=== PATIENT | male | born 1960 ===

== ENCOUNTER 2017-08-01 23:17 | Observation (INO) | payer BC ==
[2017-08-01] MEDS ORDERED: Iohexol 240 (50 ml) PO STA (23:29)
[2017-08-01] MEDS ORDERED: Sodium Chloride 0.9% 1,000 ML IV STA (23:30)
--- NOTE | 2017-08-01 23:41 | ED PDOC ---
HPI: Abdomen Time Seen by Provider: 08/01/17 23:25 Chief Complaint (Nursing): Abdominal Pain Chief Complaint (Provider): Abdominal pain History Per: Patient History/Exam Limitations: no limitations Onset/Duration Of Symptoms: Days (1) Outside of [place] travel?: No Current Symptoms Are (Timing): Still Present Location Of Pain/Discomfort: Diffuse Quality Of Discomfort: "Pain" Associated Symptoms: Nausea, Vomiting. denies: Fever, Chills Additional History Per: Patient Additional Complaint(s): The patient is a 57yo male, pmhx of colon cancer with colectomy and removal of lesions on his liver, both occurring earlier this year, presents to the ED for evaluation of diffuse abdominal pain, described as sharp, present for the past day. He reports associated nausea and vomiting 1x and states his last bowel movement was earlier today. He denies any other medical complaints. Past Medical History Reviewed: Historical Data, Nursing Documentation, Vital Signs Vital Signs: Last Vital Signs Temp 98.4 F 08/03/17 07:35 Pulse 52 L 08/03/17 07:35 Resp 20 08/03/17 07:35 BP 156/88 H 08/03/17 07:35 Pulse Ox 98 08/03/17 07:35 - Medical History PMH: HTN, Seizures Denies: Chronic Kidney Disease - Surgical History Other surgeries: colectomy, lesion removal from liver - Family History Family History: States: Unknown Family Hx - Immunization History Hx Tetanus Toxoid Vaccination: No Hx Influenza Vaccination: No Hx Pneumococcal Vaccination: No - Home Medications Home Medications: Ambulatory Orders Medication Instructions Recorded Isosorbide 30 mg PO DAILY 02/16/15 Keppra 1,000 mg PO BID 02/16/15 Lamictal Xl 300 mg PO DAILY 02/16/15 Simvastatin 20 mg PO HS 02/16/15 - Allergies Allergies/Adverse Reactions: Allergies Allergy/AdvReac Type Severity Reaction Status Date / Time No Known Allergies Allergy Verified 08/01/17 23:18 Review of Systems ROS Statement: Except As Marked, All Systems Reviewed And Found Negative Constitutional: Negative for: Fever, Chills Gastrointestinal: Positive for: Nausea, Vomiting (x1), Abdominal Pain (diffuse) Physical Exam - Reviewed Nursing Documentation Reviewed: Yes Vital Signs Reviewed: Yes - Physical Exam Appears: Positive for: Non-toxic, Uncomfortable Head Exam: Positive for: ATRAUMATIC, NORMAL INSPECTION, NORMOCEPHALIC Skin: Positive for: Normal Color Eye Exam: Positive for: Normal appearance Neck: Positive for: Normal, Supple Cardiovascular/Chest: Positive for: Regular Rate, Rhythm Respiratory: Positive for: Normal Breath Sounds. Negative for: Respiratory Distress Gastrointestinal/Abdominal: Positive for: Soft, Tenderness (diffuse). Negative for: Guarding, Rebound Back: Positive for: Normal Inspection Extremity: Positive for: Normal ROM. Negative for: Deformity, Swelling Neurologic/Psych: Positive for: Alert, Oriented. Negative for: Motor/Sensory Deficits - Laboratory Results Result Diagrams: 08/03/17 08:01 08/01/17 23:47 - ECG Interpretation Of ECG: NSR @ 70, no ST-T changes. O2 Sat by Pulse Oximetry: 100 (RA) Pulse Ox Interpretation: Normal Medical Decision Making Medical Decision Making: Time: 2329 Impression: Abdominal pain Plan: * CT AP w. PO Contrast * Labs * IV NS 1L @ 1000 ml/hr * Morphine 4mg IV * Zofran 4mg IV * Urinalysis * Urine culture * ED Observation Scribe Attestation: Documented by Mallory Cummings, acting as a scribe for Idalia Jacobs MD. Provider Scribe Attestation: All medical record entries made by the Scribe were at my direction and personally dictated by me. I have reviewed the chart and agree that the record accurately reflects my personal performance of the history, physical exam, medical decision making, and the department course for this patient. I have also personally directed, reviewed, and agree with the discharge instructions and disposition. ED OBSERVATION Date of observation admission: 08/01/17 Time of observation admission: 23:30 - Observation admission statement Patient is being placed in observation because:: Pt w/ diffuse abdominal pain - Goals of Observation Goals of observation are:: Pt awaiting labs, imaging. - Progress Note Progress Note: 08/02/17 00:00 Pt to be signed out to Dr. Lipscomb pending labs, CT. Disposition - Clinical Impression Clinical Impression: Abdominal pain - Patient ED Disposition Is Patient to be Admitted: Transfer of Care - Disposition Disposition: Transfer of Care Disposition Time: 00:00 Condition: STABLE Patient Signed Over To: Sosa Lipscomb Handoff Comments: pending labs and imaging
[2017-08-01 23:53] LABS: BASO # 0.1 K/uL (0.0-0.2); BASO % 0.7 % (0.0-2.0); EOS # 0.1 K/uL (0.0-0.7); EOS % 0.7 % (0.0-4.0); LYMPH # 1.2 K/uL (1.0-4.3); LYMPH % 9.9 % (20.0-40.0); MEAN CELL VOLUME 85.3 fl (80.0-94.0); MEAN CORPUSCULAR HGB CONC 32.8 g/dL (33.0-37.0); MEAN PLATELET VOLUME 9.1 fl (7.2-11.7); MONO # 0.9 K/uL (0.0-0.8); NEUT % 81.7 % (50.0-75.0); PLATELET COUNT 194 K/uL (130-400); RED CELL DISTRIBUTION WIDTH 17.5 % (11.5-14.5); WHITE BLOOD COUNT 12.3 K/uL (4.8-10.8)
[2017-08-02 00:01] LABS: PARTIAL THROMBOPLASTIN TIME 28.4 Seconds (25.6-37.1)
--- NOTE | 2017-08-02 00:14 | ED PDOC ---
- Laboratory Results Result Diagrams: 08/03/17 08:01 08/01/17 23:47 - ECG O2 Sat by Pulse Oximetry: 100 (RA) Pulse Ox Interpretation: Normal Medical Decision Making Medical Decision Making: Receiving Sign Out: Pt signed out to me by Dr. Jacobs pending CT and labs, Scribe Attestation: Documented by Mallory Cummings, acting as a scribe for Sosa Lipscomb MD. Provider Scribe Attestation: All medical record entries made by the Scribe were at my direction and personally dictated by me. I have reviewed the chart and agree that the record accurately reflects my personal performance of the history, physical exam, medical decision making, and the department course for this patient. I have also personally directed, reviewed, and agree with the discharge instructions and disposition. Disposition - Clinical Impression Clinical Impression: Abdominal pain, SBO (small bowel obstruction) - POA Present On Arrival: None - Disposition Disposition: Admitted as In-Patient Disposition Time: 14:40 Condition: STABLE ED OBSERVATION Date of observation admission: 08/01/17 Time of observation admission: 23:30 - Observation admission statement Patient is being placed in observation because:: Pt with abdominal pain. - Goals of Observation Goals of observation are:: Pt awaiting CT AP w/ PO and IV contrast. - Progress Note Progress Note: 08/02/17 00:00 Pt signed out to me by Dr. Jacobs pending imaging studies. 08/02/17 01:30 Pt resting in room, no acute distress. 08/02/17 03:[address] scan. 08/02/17 04:09 CT AP IMPRESSION: 1. Fatty infiltration of the liver with suggestion of prior partial hepatectomy and cholecystectomy. 2. Suggestion of small bowel obstruction. There appears to be a tapering transition in the right upper quadrant adjacent to the liver. Minimal fluid is noted in the area. 3. Distal sigmoid anastomosis consistent with partial sigmoid resection. 08/02/17 05:35 Pt resting in room, vitals stable. 08/02/17 06:[address] Burns; pt to be admitted to med/surg under Dr. Burns for small bowel obstruction. Call placed to Dr. Potter, general surgeon arts education teacher. 08/02/17 06:[address] Potter, who is aware and agrees with plan. Call placed to president [employer] arts education teacher. 08/02/17 06:18 Case discussed with president finance company arts education teacher who is aware and will evaluate patient at bedside.
[2017-08-02 00:18] LABS: ALB/GLOB RATIO 1.2 (1.0-2.1); ALKALINE PHOSPHATASE 106 U/L (38-126); ALT/SGPT 166 U/L (21-72); AST/SGOT 144 U/L (17-59); BLOOD UREA NITROGEN 13 mg/dl (9-20); CALCIUM 9.9 mg/dL (8.4-10.2); CARBON DIOXIDE 21 mmol/L (22-30); CHLORIDE 100 mmol/L (98-107); GFR AFRICAN-AMERICAN > 60; GLUCOSE,RANDOM 153 mg/dL (75-110); LIPASE 241 U/L (23-300); POTASSIUM 4.4 MMOL/L (3.6-5.0); SODIUM 135 mmol/l (132-148); TOTAL PROTEIN 8.8 G/DL (6.3-8.2)
[2017-08-02] MEDS ORDERED: Iohexol 240 (50 ml) ONE (00:22)
[2017-08-02 01:36] LABS: NEUTROPHIL 84 % (42-75); REACTIVE LYMPHOCYTES 1 % (0-0); TOTAL CELLS COUNTED 100
[2017-08-02] MEDS ORDERED: Iohexol 300 100 ML IJ ONE (03:23)
[2017-08-02] MEDS ORDERED: Sodium Chloride 0.9% 50 ML IV ONE (03:23)
[2017-08-02] MEDS ORDERED: Sodium Chloride 0.9% 1,000 ML IV STA (05:10)
[2017-08-02 08:16] LABS: URINE BILIRUBIN NEGATIVE (NEGATIVE); URINE BLOOD SMALL (NEGATIVE); URINE COLOR YELLOW (YELLOW); URINE GLUCOSE (UA) NEG (Normal); URINE KETONE NEGATIVE (NEGATIVE); URINE LEUKOCYTE ESTERASE NEG Leu/uL (Negative); URINE PROTEIN 30 mg/dL (NEGATIVE); WBC URINE < 1 /hpf (0-5)
[2017-08-02 08:18] LABS: RBC URINE 8 /hpf (0-3)
--- NOTE | 2017-08-02 08:32 | CT ---
PROCEDURE: CT Abdomen and Pelvis with contrast HISTORY: Gen abd pain, vomiting, h/o colon CA and resection COMPARISON: None. TECHNIQUE: Contrast dose: Omnipaque 300, 95 cc Radiation dose: Total exam DLP = 1131 mGy-cm. This CT exam was performed using one or more of the following dose reduction techniques: Automated exposure control, adjustment of the mA and/or kV according to patient size, and/or use of iterative reconstruction technique. FINDINGS: LOWER THORAX: Unremarkable. LIVER: There is marked diffuse fatty infiltration of the liver in this which appears presents with prior right hepatectomy. GALLBLADDER AND BILE DUCTS: Likely surgically absent gallbladder. Clinically correlate. PANCREAS: Unremarkable. No gross lesion or ductal dilatation. SPLEEN: Unremarkable. ADRENALS: Unremarkable. No mass. KIDNEYS AND URETERS: Unremarkable. No hydronephrosis. No solid mass. VASCULATURE: Unremarkable. No aortic aneurysm. BOWEL: Borderline bowel obstruction pattern is appreciably distended small bowel is appreciated up to the right flank/right upper quadrant lateral to the remaining liver segments. Transition point is not definitive but maybe at the right upper quadrant see 70 through 102, series 3. Stomach is distended with retained oral contrast material. The large bowel is not collapsed and the overall pattern may reflect an ileus or developing distal small bowel obstruction. Liquified fecal material and gas mildly distend the ascending colon and transverse segment proximally. Prior segmental resection of the distal sigmoid colon is a pair with anastomosis appearing unremarkable grossly. APPENDIX: Normal appendix. PERITONEUM: Limited ascites seen the right upper quadrant as well as the right hemipelvis PE LYMPH NODES: Unremarkable. No enlarged lymph nodes. BLADDER: Unremarkable. REPRODUCTIVE: Unremarkable. BONES: No acute fracture. OTHER FINDINGS: None. IMPRESSION: 1. Early distal small bowel obstruction versus possible developing ileus. 2. Partial right hepatectomy suggests as well as cholecystectomy with marked diffuse fatty infiltration are identified in the remaining hepatic parenchyma without discrete mass evident. 3. Trace ascites. [facility] V rad preliminary report submitted 08/02/2017.
[2017-08-02] MEDS ORDERED: HYDROmorphone 0.5 mg/0.5 ml ISec IVP PRN (09:07)
--- NOTE | 2017-08-02 09:58 | RAD ---
HISTORY: Abd pain COMPARISON: Portable chest 02/05/2013. FINDINGS: LUNGS: No active pulmonary disease. PLEURA: Resolution of prior left sided interstitial pulmonary changes. No acute infiltrate bilaterally. CARDIOVASCULAR: Normal. OSSEOUS STRUCTURES: No significant abnormalities. VISUALIZED UPPER ABDOMEN: Ventricles is seen at the right subdiaphragmatic space or right lung base OTHER FINDINGS: None. IMPRESSION: No acute cardiopulmonary superior resolution prior interstitial changes left lung. Interval surgical clips right upper quadrant abdomen or possibly right lung base posteriorly.
--- NOTE | 2017-08-02 11:04 | CP.PCM.CON ---
History of Present Illness - History of Present Illness History of Present Illness: 57 y.o. male comes to the hospital c/o abdominal pain for 1 day duration. Patient states that he had one episode of non bloody vomiting. Denies any fever or chills at home. Was passing flatus and had a bowel movements yesterday and 1 today that is diarrhea as per patient. NO urinary symptoms, no sick contacts at home. No other complains at present time. Review of Systems - Constitutional Constitutional: As Per HPI - EENT Eyes: Other (unremarkable) Ears: Other (unremarkable) Nose/Mouth/Throat: Other (unremarkable) - Cardiovascular Cardiovascular: Other (unremarkable) - Respiratory Respiratory: Other (unremarkable) - Gastrointestinal Gastrointestinal: As Per HPI - Genitourinary Genitourinary: As Per HPI - Reproductive: Male Reproductive:Male: Other (unremarkable) - Integumentary Integumentary: Other (unremarkable) - Neurological Neurological: Other (unremarkable) - Psychiatric Psychiatric: Other (unremarkable) - Endocrine Endocrine: Other (unremarkable) - Hematologic/Lymphatic Hematologic: Other (unremarkable) Past Patient History - Past Medical History & Family History Past Medical History?: Yes - Past Social History Smoking Status: Never Smoked - CARDIAC Hx Cardiac Disorders: Yes (htn,hld) - PULMONARY Hx Respiratory Disorders: No - NEUROLOGICAL Hx Neurological Disorder: Yes (seizure) - HEENT Hx HEENT Problems: No - RENAL Hx Chronic Kidney Disease: No - ENDOCRINE/METABOLIC Hx Endocrine Disorders: No - HEMATOLOGICAL/ONCOLOGICAL Hx Blood Disorders: No Hx Cancer: Yes (colon cancer with liver metastasis) - INTEGUMENTARY Hx Dermatological Problems: No - MUSCULOSKELETAL/RHEUMATOLOGICAL Hx Musculoskeletal Disorders: No Hx Falls: Yes (hx falls due to seizures) - GASTROINTESTINAL Hx Gastrointestinal Disorders: No Hx Bowel Surgery: Yes (sigmoid colectomy) - GENITOURINARY/GYNECOLOGICAL Hx Genitourinary Disorders: No - PSYCHIATRIC Hx Psychophysiologic Disorder: No - SURGICAL HISTORY Hx Surgeries: Yes Other/Comment: craniotomy- January 2014, sigmoid colectomy and right hepatectomy - ANESTHESIA Hx Anesthesia: Yes Hx Anesthesia Reactions: No Hx Malignant Hyperthermia: No Meds Allergies/Adverse Reactions: Allergies Allergy/AdvReac Type Severity Reaction Status Date / Time No Known Allergies Allergy Verified 08/01/17 23:18 - Medications Medications: Current Medications Atorvastatin Calcium (Lipitor) 20 mg PO DAILY [facility] Hydromorphone HCl (Dilaudid) 1 mg IVP Q6 PRN PRN Reason: Pain, moderate (4-7) Sodium Chloride (Sodium Chloride 0.9%) 1,000 mls @ 125 mls/hr IV .Q8H STA Stop: 08/02/17 13:09 Last Admin: 08/02/17 07:39 Dose: 125 mls/hr Dextrose/Sodium Chloride (Dextrose 5%/0.45% Ns 1000 Ml) 1,000 mls @ 80 mls/hr IV .[id number] [facility] Stop: 08/03/17 09:07 Isosorbide Mononitrate (Imdur Er) 30 mg PO DAILY [facility] Lamotrigine (Lamictal) 300 mg PO DAILY [facility] Levetiracetam (Keppra) 1,000 mg PO BID [facility] Physical Exam - Constitutional Appears: Well, Non-toxic, No Acute Distress - Head Exam Head Exam: ATRAUMATIC, NORMAL INSPECTION, NORMOCEPHALIC - Eye Exam Eye Exam: EOMI, Normal appearance, PERRL Pupil Exam: NORMAL ACCOMODATION, PERRL - ENT Exam ENT Exam: Mucous Membranes Moist, Normal Exam - Neck Exam Neck exam: Positive for: Full Rom, Normal Inspection - Respiratory Exam Respiratory Exam: Clear to Auscultation Bilateral, NORMAL BREATHING PATTERN - Cardiovascular Exam Cardiovascular Exam: REGULAR RHYTHM, +S1, +S2 - GI/Abdominal Exam GI & Abdominal Exam: Normal Bowel Sounds, Soft Additional comments: NT, ND, BS+, no rebound, no guarding, well healed scars from prior surgeries - Rectal Exam Rectal Exam: Deferred - Extremities Exam Extremities exam: Positive for: full ROM, normal inspection - Back Exam Back exam: NORMAL INSPECTION - Neurological Exam Neurological exam: Alert, CN II-XII Intact, Oriented x3 - Psychiatric Exam Psychiatric exam: Normal Affect, Normal Mood - Skin Skin Exam: Dry, Intact, Normal Color, Warm Results - Vital Signs Recent Vital Signs: Last Vital Signs Temp 98 F 08/02/17 08:30 Pulse 55 L 08/02/17 09:43 Resp 18 08/02/17 09:43 BP 155/74 H 08/02/17 08:30 Pulse Ox 98 08/02/17 08:30 - Labs Result Diagrams: 08/01/17 23:47 08/01/17 23:47 Labs: Laboratory Results - last 24 hr 08/02/17 07:52 Urine Color Yellow Urine Clarity Clear Urine pH 6.0 Ur Specific [place] 1.049 H Urine Protein 30 Urine Glucose (UA) Neg Urine Ketones Negative Urine Blood Small Urine Nitrate Negative Urine Bilirubin Negative Urine Urobilinogen 2.0 Ur Leukocyte Esterase Neg Urine RBC (Auto) 8 H Urine Microscopic WBC < 1 - Imaging and Cardiology CT scan - abdomen Status: Image reviewed by me, Report reviewed by me Assessment & Plan - Assessment and Plan (Free Text) Assessment: 57 y.o. male with resolving small bowel obstruction Plan: - Clear liquid diet - pain control - Zofran prn - IV fluids - Repeat labs in am - Out of bed and ambulate - Will follow
[2017-08-02] MEDS: Dextrose 5%/0.45% NS 1,000 ML IV SCH ×2 (11:35→23:20)
--- NOTE | 2017-08-02 20:47 | HP ---
HISTORY OF PRESENT ILLNESS: Mr. Du is a 57-year-old male who was admitted to the emergency room because of abdominal pain with nausea and vomiting x1 on the night of admission. He indicated that he had moved his bowel and was sitting in the emergency room. Had a CAT scan of the abdomen done that showed partial lymphatic obstruction. He was therefore admitted for workup and therapy. PAST MEDICAL HISTORY: He has a past medical history of cancer of the colon status post colectomy about 1 year ago. He also has history of brain tumor, status post resection which resolved and seizure disorder. He also has a history of hypertension. FAMILY HISTORY: Unremarkable. SOCIAL HISTORY: He does not smoke or drink and lives at home with . REVIEW OF SYSTEMS: Essentially unremarkable. PHYSICAL EXAMINATION: GENERAL: The patient is alert and oriented, appears much more comfortable since admission just moved his bowels this morning. VITAL SIGNS: Blood pressure 130/78 with a pulse of 60, respiratory rate 20 per minutes. He is afebrile. O2 sat is 97% on room air. SKIN: Shows fair turgor. HEENT: Pupils are equal and reactive to light and accommodation. Craniotomy scar is noted. Mouth shows fair hygiene. JVP is flat. LUNGS: Clear. HEART: Regular. No murmurs, rub or gallops. ABDOMEN: Distended, but nontender. Scar of prior surgery noted. There is normoactive bowel sounds. No organomegaly appreciated. EXTREMITIES: Shows no edema or cyanosis. GENITALIA AND RECTAL: Within normal limits. LABORATORY DATA: Remarkable for WBC of 12.5, hemoglobin 15.7, platelet count of 197,000. Sodium 135, potassium 4.4, BUN of 13, creatinine 0.7, ALT 166, AST 144, lipase 241. Chest x-ray official report pending. CAT scan of the abdomen and pelvis is remarkable for early distal small bowel obstruction, vessels possible developing ileus, partial right hepatectomy surgery as well as cholecystectomy with marked diffuse fatty infiltration. Trace ascites. EKG is remarkable for normal sinus rhythm moderate voltage criteria for LVH. IMPRESSION: Partial small bowel obstruction, history of colon cancer status post resection, and hepatectomy partial, hypertension, history of seizures, history of brain cancer in the past. PLAN: IV hydration, analgesics for pain, would give IV Protonix, gastroenterology, and surgical evaluation will be requested. Begin clear liquids by mouth and advance gradually as tolerated since the patient has moved his bowels. Further therapy would depend on findings. José Miguel Burns MD
--- NOTE | 2017-08-02 21:42 | CP.PCM.CON ---
History of Present Illness - History of Present Illness History of Present Illness: 57 yo male admitted with abdominal pain beginning the day before admission. He had colon cancer approximately one year ago requiring segmental sigmoid resection and hepatectomy for liver mets. CT suggets possible bowel obstruction . Since arriving to the floor, has had a couple of bowel movements. Review of Systems - Constitutional Constitutional: absent: Chills - EENT Eyes: absent: Blurred Vision Ears: absent: Decreased Hearing Nose/Mouth/Throat: absent: Epistaxis - Cardiovascular Cardiovascular: absent: Chest Pain - Respiratory Respiratory: absent: Cough - Gastrointestinal Gastrointestinal: As Per HPI - Genitourinary Genitourinary: absent: Change in Urinary Stream Past Patient History - Past Medical History & Family History Past Medical History?: Yes - Past Social History Smoking Status: Never Smoked - CARDIAC Hx Cardiac Disorders: Yes (htn,hld) - PULMONARY Hx Respiratory Disorders: No - NEUROLOGICAL Hx Neurological Disorder: Yes (seizure) - HEENT Hx HEENT Problems: No - RENAL Hx Chronic Kidney Disease: No - ENDOCRINE/METABOLIC Hx Endocrine Disorders: No - HEMATOLOGICAL/ONCOLOGICAL Hx Blood Disorders: No Hx Cancer: Yes (colon cancer with liver metastasis) - INTEGUMENTARY Hx Dermatological Problems: No - MUSCULOSKELETAL/RHEUMATOLOGICAL Hx Musculoskeletal Disorders: No Hx Falls: Yes (hx falls due to seizures) - GASTROINTESTINAL Hx Gastrointestinal Disorders: No Hx Bowel Surgery: Yes (sigmoid colectomy) - GENITOURINARY/GYNECOLOGICAL Hx Genitourinary Disorders: No - PSYCHIATRIC Hx Psychophysiologic Disorder: No - SURGICAL HISTORY Hx Surgeries: Yes Other/Comment: craniotomy- January 2014, sigmoid colectomy and right hepatectomy - ANESTHESIA Hx Anesthesia: Yes Hx Anesthesia Reactions: No Hx Malignant Hyperthermia: No Meds Allergies/Adverse Reactions: Allergies Allergy/AdvReac Type Severity Reaction Status Date / Time No Known Allergies Allergy Verified 08/01/17 23:18 - Medications Medications: Current Medications Atorvastatin Calcium (Lipitor) 20 mg PO DAILY@1700 BERNA Last Admin: 08/02/17 16:33 Dose: 20 mg Hydromorphone HCl (Dilaudid) 1 mg IVP Q6 PRN PRN Reason: Pain, moderate (4-7) Dextrose/Sodium Chloride (Dextrose 5%/0.45% Ns 1000 Ml) 1,000 mls @ 80 mls/hr IV .[id number] [facility] Stop: 08/03/17 09:07 Last Admin: 08/02/17 11:35 Dose: 80 mls/hr Isosorbide Mononitrate (Imdur Er) 30 mg PO DAILY [facility] Last Admin: 08/02/17 11:20 Dose: 30 mg Lamotrigine (Lamictal) 300 mg PO DAILY@1700 [facility] Last Admin: 08/02/17 16:33 Dose: 300 mg Levetiracetam (Keppra) 1,000 mg PO BID [facility] Last Admin: 08/02/17 16:33 Dose: 1,000 mg Physical Exam - Head Exam Head Exam: ATRAUMATIC - Eye Exam Eye Exam: EOMI - ENT Exam ENT Exam: Mucous Membranes Moist - Neck Exam Neck exam: Positive for: Normal Inspection - Respiratory Exam Respiratory Exam: Clear to Auscultation Bilateral - Cardiovascular Exam Cardiovascular Exam: REGULAR RHYTHM, +S1, +S2 - GI/Abdominal Exam GI & Abdominal Exam: Normal Bowel Sounds, Soft. absent: Tenderness Additional comments: Large circular abdominal scar Results - Vital Signs Recent Vital Signs: Last Vital Signs Temp 97.8 F 08/02/17 16:24 Pulse 56 L 08/02/17 16:04 Resp 18 08/02/17 16:04 BP 146/78 08/02/17 16:04 Pulse Ox 99 08/02/17 16:04 - Labs Result Diagrams: 08/01/17 23:47 08/01/17 23:47 Labs: Laboratory Results - last 24 hr 08/02/17 07:52 Urine Color Yellow Urine Clarity Clear Urine pH 6.0 Ur Specific [place] 1.049 H Urine Protein 30 Urine Glucose (UA) Neg Urine Ketones Negative Urine Blood Small Urine Nitrate Negative Urine Bilirubin Negative Urine Urobilinogen 2.0 Ur Leukocyte Esterase Neg Urine RBC (Auto) 8 H Urine Microscopic WBC < 1 Assessment & Plan (1) Bowel obstruction Assessment and Plan: CT c/w partial obstruction. Having bowel movements now and tolerating liquids. Has had previous major abdominal operations and likely has adhesions. Will check KUB tomorrow. Status: Acute
[2017-08-03 00:14] VITALS: RESP 20
[2017-08-03 07:36] VITALS: BP 156/88; PULSE 52; TEMP 98.4
[2017-08-03 08:24] LABS: HEMATOCRIT 44.2 % (35.0-51.0); MEAN CELL VOLUME 85.5 fl (80.0-94.0); MEAN CORPUSCULAR HEMOGLOBIN 28.2 pg (27.0-31.0); RED CELL DISTRIBUTION WIDTH 17.4 % (11.5-14.5); WHITE BLOOD COUNT 6.2 K/uL (4.8-10.8)
--- NOTE | 2017-08-03 08:24 | CP.PCM.PN ---
<MarycruzNiki-Melissa - Last Filed: 08/03/17 08:22> Subjective - Date & Time of Evaluation Date of Evaluation: 08/03/17 Time of Evaluation: 08:22 - Subjective Subjective: Surgery: Dr. Potter Patient doing well. Report flatus. Denies n/v abdominal pain. Tolerated clears. Objective - Vital Signs/Intake and Output Vital Signs (last 24 hours): Temp Pulse Resp BP Pulse Ox 98.4 F 52 L 20 156/88 H 98 08/03/17 07:35 08/03/17 07:35 08/03/17 07:35 08/03/17 07:35 08/03/17 07:35 - Medications Medications: Current Medications Atorvastatin Calcium (Lipitor) 20 mg PO DAILY@1700 [facility] Last Admin: 08/02/17 16:33 Dose: 20 mg Hydromorphone HCl (Dilaudid) 1 mg IVP Q6 PRN PRN Reason: Pain, moderate (4-7) Dextrose/Sodium Chloride (Dextrose 5%/0.45% Ns 1000 Ml) 1,000 mls @ 80 mls/hr IV .[id number] [facility] Stop: 08/03/17 09:07 Last Admin: 08/02/17 23:20 Dose: 80 mls/hr Isosorbide Mononitrate (Imdur Er) 30 mg PO DAILY [facility] Last Admin: 08/02/17 11:20 Dose: 30 mg Lamotrigine (Lamictal) 300 mg PO DAILY@1700 [facility] Last Admin: 08/02/17 16:33 Dose: 300 mg Levetiracetam (Keppra) 1,000 mg PO BID [facility] Last Admin: 08/02/17 16:33 Dose: 1,000 mg - Labs Labs: PT 11.1 Seconds (9.8-13.1) 08/01/17 23:47 INR 1.1 (0.9-1.2) 08/01/17 23:47 APTT 28.4 Seconds (25.6-37.1) 08/01/17 23:47 - Constitutional Appears: Well, Non-toxic, No Acute Distress - Head Exam Head Exam: ATRAUMATIC, NORMOCEPHALIC - Eye Exam Eye Exam: EOMI, Normal appearance - ENT Exam ENT Exam: Mucous Membranes Moist - Respiratory Exam Respiratory Exam: NORMAL BREATHING PATTERN. absent: Respiratory Distress - Cardiovascular Exam Cardiovascular Exam: REGULAR RHYTHM. absent: Tachycardia - GI/Abdominal Exam GI & Abdominal Exam: Soft. absent: Distended, Guarding, Tenderness, Rebound - Neurological Exam Neurological Exam: Alert, Awake, Oriented x3 - Psychiatric Exam Psychiatric exam: Normal Affect, Normal Mood Assessment and Plan - Assessment and Plan (Free Text) Assessment: 57 y/o male w/ abdominal pain n/v-resolved Plan: -ok to advance to Full liquid diet then regular if tolerates -encourage ambulation -monitor for pain or vomiting -if diet tolerated, cleared for d/c from surgical standpoint this afternoon -d/w Dr. Tariq POLANCOanuj PGY3 <Sameer Potter - Last Filed: 08/03/17 10:12> Subjective - Date & Time of Evaluation Time of Evaluation: 10:00 - Subjective Subjective: Patient was seen and examined at the bedside. Agree with resident's note above. Objective - Vital Signs/Intake and Output Vital Signs (last 24 hours): Temp Pulse Resp BP Pulse Ox 98.4 F 52 L 20 156/88 H 98 08/03/17 07:35 08/03/17 07:35 08/03/17 07:35 08/03/17 07:35 08/03/17 07:35 - Medications Medications: Current Medications Atorvastatin Calcium (Lipitor) 20 mg PO DAILY@1700 [facility] Last Admin: 08/02/17 16:33 Dose: 20 mg Hydromorphone HCl (Dilaudid) 1 mg IVP Q6 PRN PRN Reason: Pain, moderate (4-7) Isosorbide Mononitrate (Imdur Er) 30 mg PO DAILY [facility] Last Admin: 08/03/17 09:49 Dose: 30 mg Lamotrigine (Lamictal) 300 mg PO DAILY@1700 [facility] Last Admin: 08/02/17 16:33 Dose: 300 mg Levetiracetam (Keppra) 1,000 mg PO BID [facility] Last Admin: 08/03/17 09:49 Dose: 1,000 mg - Labs Labs: 08/03/17 08:01 PT 11.1 Seconds (9.8-13.1) 08/01/17 23:47 INR 1.1 (0.9-1.2) 08/01/17 23:47 APTT 28.4 Seconds (25.6-37.1) 08/01/17 23:47 Assessment and Plan - Assessment and Plan (Free Text) Plan: - Regular diet - Clear for discharge home from the surgical stand point
--- NOTE | 2017-08-03 09:19 | CP.PCM.PN ---
Subjective - Date & Time of Evaluation Date of Evaluation: 08/03/17 Time of Evaluation: 09:16 - Subjective Subjective: Patient with 7 bowel movements yesterday. No abdominal complaints. Objective - Vital Signs/Intake and Output Vital Signs (last 24 hours): Temp Pulse Resp BP Pulse Ox 98.4 F 52 L 20 156/88 H 98 08/03/17 07:35 08/03/17 07:35 08/03/17 07:35 08/03/17 07:35 08/03/17 07:35 - Medications Medications: Current Medications Atorvastatin Calcium (Lipitor) 20 mg PO DAILY@1700 [facility] Last Admin: 08/02/17 16:33 Dose: 20 mg Hydromorphone HCl (Dilaudid) 1 mg IVP Q6 PRN PRN Reason: Pain, moderate (4-7) Isosorbide Mononitrate (Imdur Er) 30 mg PO DAILY [facility] Last Admin: 08/02/17 11:20 Dose: 30 mg Lamotrigine (Lamictal) 300 mg PO DAILY@1700 [facility] Last Admin: 08/02/17 16:33 Dose: 300 mg Levetiracetam (Keppra) 1,000 mg PO BID [facility] Last Admin: 08/02/17 16:33 Dose: 1,000 mg - Labs Labs: 08/03/17 08:01 PT 11.1 Seconds (9.8-13.1) 08/01/17 23:47 INR 1.1 (0.9-1.2) 08/01/17 23:47 APTT 28.4 Seconds (25.6-37.1) 08/01/17 23:47 - Head Exam Head Exam: ATRAUMATIC - Eye Exam Eye Exam: EOMI - ENT Exam ENT Exam: Mucous Membranes Moist - Respiratory Exam Respiratory Exam: Clear to Ausculation Bilateral - Cardiovascular Exam Cardiovascular Exam: REGULAR RHYTHM - GI/Abdominal Exam GI & Abdominal Exam: Soft, Normal Bowel Sounds. absent: Distended, Tenderness Assessment and Plan (1) Bowel obstruction Assessment & Plan: Clinically improving. Abdomen now is soft. Having KUB done now. Likely spontaneous resolution of obstruction and probable discharge today unless KUB shows otherwise. Status: Acute
[2017-08-03 11:13] VITALS: O2SAT 100
--- NOTE | 2017-08-03 11:33 | CARD ---
APPROVED REPORT EKG Measurement Heart Odpy01WEFM ID [id number] <Conclusion> Normal sinus rhythm Moderate voltage criteria for LVH, may be normal variant Borderline ECG
--- NOTE | 2017-08-03 11:35 | RAD ---
HISTORY: F/u SBO COMPARISON: No prior. FINDINGS: BOWEL: The bowel gas pattern is nonspecific. No obstruction. BONES: Normal. OTHER FINDINGS: There are multiple surgical clips in the right upper quadrant. IMPRESSION: Nonobstructive bowel-gas pattern.
--- NOTE | 2017-08-03 14:45 | CP.PCM.DIS ---
Provider - Provider Date of Admission: 08/02/17 06:02 Attending physician: José Miguel Lu MD Primary care physician: José Miguel Lu MD Time Spent in preparation of Discharge (in minutes): 30 Diagnosis - Discharge Diagnosis (1) Hypertension Status: Acute (2) Abdominal pain Status: Acute (3) Bowel obstruction Status: Acute (4) Seizure Status: Acute Hospital Course - Lab Results Lab Results: Most Recent Lab Values WBC 6.2 K/uL (4.8-10.8) 08/03/17 08:01 RBC 5.17 Mil/uL (4.40-5.90) 08/03/17 08:01 Hgb 14.6 g/dL (12.0-18.0) 08/03/17 08:01 Hct 44.2 % (35.0-51.0) 08/03/17 08:01 MCV 85.5 fl (80.0-94.0) 08/03/17 08:01 MCH 28.2 pg (27.0-31.0) 08/03/17 08:01 MCHC 33.0 g/dL (33.0-37.0) 08/03/17 08:01 RDW 17.4 % (11.5-14.5) H 08/03/17 08:01 Plt Count 151 K/uL (130-400) 08/03/17 08:01 MPV 9.1 fl (7.2-11.7) 08/01/17 23:47 Neut % (Auto) 81.7 % (50.0-75.0) H 08/01/17 23:47 Lymph % (Auto) 9.9 % (20.0-40.0) L 08/01/17 23:47 [place] % (Auto) 7.0 % (0.0-10.0) 08/01/17 23:47 Eos % (Auto) 0.7 % (0.0-4.0) 08/01/17 23:47 Baso % (Auto) 0.7 % (0.0-2.0) 08/01/17 23:47 Neut # 10.0 K/uL (1.8-7.0) H 08/01/17 23:47 Lymph # 1.2 K/uL (1.0-4.3) 08/01/17 23:47 [place] # 0.9 K/uL (0.0-0.8) H 08/01/17 23:47 Eos # 0.1 K/uL (0.0-0.7) 08/01/17 23:47 Baso # 0.1 K/uL (0.0-0.2) 08/01/17 23:47 Neutrophils % (Manual) 84 % (42-75) H 08/01/17 23:47 Lymphocytes % (Manual) 7 % (20-50) L 08/01/17 23:47 Reactive Lymphs % 1 % (0-0) H 08/01/17 23:47 Monocytes % (Manual) 8 % (0-10) 08/01/17 23:47 Platelet Estimate Normal (NORMAL) 08/01/17 23:47 PT 11.1 Seconds (9.8-13.1) 08/01/17 23:47 INR 1.1 (0.9-1.2) 08/01/17 23:47 APTT 28.4 Seconds (25.6-37.1) 08/01/17 23:47 Sodium 135 mmol/l (132-148) 08/01/17 23:47 Potassium 4.4 MMOL/L (3.6-5.0) 08/01/17 23:47 Chloride 100 mmol/L (98-107) 08/01/17 23:47 Carbon Dioxide 21 mmol/L (22-30) L 08/01/17 23:47 Anion Gap 18 (10-20) 08/01/17 23:47 BUN 13 mg/dl (9-20) 08/01/17 23:47 Creatinine 0.7 mg/dL (0.8-1.5) L 08/01/17 23:47 Est GFR ( Amer) > 60 08/01/17 23:47 Est GFR (Non-Af Amer) > 60 08/01/17 23:47 Random Glucose 153 mg/dL (75-110) H 08/01/17 23:47 Calcium 9.9 mg/dL (8.4-10.2) 08/01/17 23:47 Total Bilirubin 1.0 mg/dl (0.2-1.3) 08/01/17 23:47 AST 144 U/L (17-59) H 08/01/17 23:47 ALT 166 U/L (21-72) H D 08/01/17 23:47 Alkaline Phosphatase 106 U/L (38-126) 08/01/17 23:47 Total Protein 8.8 G/DL (6.3-8.2) H 08/01/17 23:47 Albumin 4.8 g/dL (3.5-5.0) 08/01/17 23:47 Globulin 4.1 gm/dL (2.2-3.9) H 08/01/17 23:47 Albumin/Globulin Ratio 1.2 (1.0-2.1) 08/01/17 23:47 Lipase 241 U/L (23-300) 08/01/17 23:47 Urine Color Yellow (YELLOW) 08/02/17 07:52 Urine Clarity Clear (Clear) 08/02/17 07:52 Urine pH 6.0 (5.0-8.0) 08/02/17 07:52 Ur Specific [place] 1.049 (1.003-1.030) H 08/02/17 07:52 Urine Protein 30 mg/dL (NEGATIVE) 08/02/17 07:52 Urine Glucose (UA) Neg mg/dL (Normal) 08/02/17 07:52 Urine Ketones Negative mg/dL (NEGATIVE) 08/02/17 07:52 Urine Blood Small (NEGATIVE) 08/02/17 07:52 Urine Nitrate Negative (NEGATIVE) 08/02/17 07:52 Urine Bilirubin Negative (NEGATIVE) 08/02/17 07:52 Urine Urobilinogen 2.0 mg/dL (0.2-1.0) 08/02/17 07:52 Ur Leukocyte Esterase Neg [place]/uL (Negative) 08/02/17 07:52 Urine RBC (Auto) 8 /hpf (0-3) H 08/02/17 07:52 Urine Microscopic WBC < 1 /hpf (0-5) 08/02/17 07:52 - Hospital Course Hospital Course: abdominal pain resolved pt moved his bowels several times Discharge Exam - Head Exam Head Exam: ATRAUMATIC, NORMAL INSPECTION, NORMOCEPHALIC - Eye Exam Eye Exam: EOMI, Normal appearance, PERRL Pupil Exam: NORMAL ACCOMODATION, PERRL - GI/Abdominal Exam GI & Abdominal Exam: Normal Bowel Sounds - Rectal Exam Rectal Exam: NORMAL INSPECTION - Neurological Exam Neurological exam: Alert, CN II-XII Intact, Normal Gait, Oriented x3, Reflexes Normal - Psychiatric Exam Psychiatric exam: Normal Affect, Normal Mood - Skin Skin Exam: Dry, Intact, Normal Color, Warm Discharge Plan - Follow Up Plan Condition: STABLE Disposition: HOME/ ROUTINE Patient education suggested?: Yes Instructions: How To Wash Your Hands (GEN), Bowel Obstruction (GEN) Additional Instructions: discharge today follow up with dr lu Referrals: José Miguel Lu MD [Primary Care Provider] -
[2017-08-04] MEDS ORDERED: Enoxaparin 40 mg Syringe SC SCH (09:00)
== END 2017-08-03 16:43 | disposition home or self-care (01) ==
LOC: H.ER 23:17 → H.EROBSV 23:30 → OBSVTOIN 08-02 06:02 → H.ERHOLD 08-02 06:02 → INTOOBSV 08-02 06:02 → H.MEDSURG1 08-02 08:56
PROVIDERS: ADMIT Internal Medicine Pulmonary Disease; ATTEND Internal Medicine Pulmonary Disease
DX: K56.5 Intestinal adhesions [bands] with obstruction (postinfection) (principal); C78.7 Secondary malignant neoplasm of liver and intrahepatic bile duct; E78.5 Hyperlipidemia, unspecified; G40.909 Epilepsy, unspecified, not intractable, without status epilepticus; D49.6 Neoplasm of unspecified behavior of brain; I10 Essential (primary) hypertension; Z79.899 Other long term (current) drug therapy; Z85.038 Personal history of other malignant neoplasm of large intestine; Z85.841 Personal history of malignant neoplasm of brain; Z90.49 Acquired absence of other specified parts of digestive tract
CPT/HCPCS: 36415; 71010; 74000; 74177; 80053; 81003; 83690; 85025; 85027; 85610; 85730; 93005; 96360; 96361; 96374; 96376; 99285; G0378; J2270; J2405; J7040; J7042; Q9966; Q9967

== ENCOUNTER 2017-08-15 07:01 | Observation (INO) | payer BC ==
[2017-08-15 07:22] VITALS: RESP 18; TEMP 97.8
[2017-08-15] MEDS ORDERED: DiphenhydrAMINE 50 mg/ml Inj IVP STA (07:50)
[2017-08-15] MEDS ORDERED: Sodium Chloride 0.9% 1,000 ML IV ONE (07:52)
--- NOTE | 2017-08-15 07:52 | ED PDOC ---
HPI: Allergic Reaction Time Seen by Provider: 08/15/17 07:31 Chief Complaint (Nursing): Allergic Reaction History Per: Patient History/Exam Limitations: no limitations Onset/Duration Of Symptoms: Other (awaoke with sx) Current Symptoms Are (Timing): Better Possible Cause: Unknown Associated Symptoms: Skin Rash, Swelling, Trouble Swallowing. denies: Dyspnea, Dizziness, Itching, Redness, Chest Pain Home/EMS Treatment: None Severity: Moderate Additional History Per: Patient Additional Complaint(s): pt awoke with tongue swelling and dyspahgia, no prev sx no rash or cp or wheezing no prev sx nothing makes it better or worse no treatment at home Past Medical History Reviewed: Historical Data, Nursing Documentation, Vital Signs Vital Signs: Last Vital Signs Temp 97.8 F 08/15/17 07:19 Pulse 73 08/15/17 07:19 Resp 18 08/15/17 07:19 BP 175/91 H 08/15/17 07:19 Pulse Ox 98 08/15/17 07:19 - Medical History PMH: HTN, Hyperlipidemia, Seizures Denies: Chronic Kidney Disease - Family History Family History: States: Unknown Family Hx - Living Arrangements Living Arrangements: With Family - Social History Current smoker - smoking cessation education provided: No - Immunization History Hx Tetanus Toxoid Vaccination: No Hx Influenza Vaccination: No Hx Pneumococcal Vaccination: No - Home Medications Home Medications: Ambulatory Orders Medication Instructions Recorded Isosorbide 30 mg PO DAILY 02/16/15 Keppra 1,000 mg PO BID 02/16/15 Lamictal Xl 300 mg PO DAILY 02/16/15 Simvastatin 20 mg PO HS 02/16/15 Sennosides/Docusate Sodium [Senna 1 each PO BID #60 tablet 08/03/17 Laxative Tablet] Loratadine [Claritin] 10 mg PO DAILY #30 tab 08/15/17 Methylprednisolone [Medrol Dose 4 mg PO DAILY #21 mg 08/15/17 Pack (21 tabs)] - Allergies Allergies/Adverse Reactions: Allergies Allergy/AdvReac Type Severity Reaction Status Date / Time No Known Allergies Allergy Verified 08/01/17 23:18 Review of Systems ROS Statement: Except As Marked, All Systems Reviewed And Found Negative Constitutional: Negative for: Fever, Chills ENT: Positive for: Mouth Swelling, Throat Swelling, Other (tongue swelling). Negative for: Nose Pain, Nose Discharge, Mouth Pain, Throat Pain Cardiovascular: Negative for: Chest Pain, Palpitations Respiratory: Negative for: Cough, Shortness of Breath Gastrointestinal: Negative for: Nausea, Vomiting, Abdominal Pain Genitourinary Male: Negative for: Dysuria Skin: Negative for: Rash Neurological: Negative for: Weakness, Numbness, Headache Physical Exam - Reviewed Nursing Documentation Reviewed: Yes Vital Signs Reviewed: Yes - Physical Exam Appears: Positive for: Uncomfortable Head Exam: Positive for: ATRAUMATIC, NORMAL INSPECTION, NORMOCEPHALIC Eye Exam: Positive for: Normal appearance, EOMI, PERRL. Negative for: Nystagmus , Periorbital swelling, Periorbital tenderness, Conjunctival injection, Scleral icterus ENT: Positive for: Other (mild tounge swelling). Negative for: Nasal Congestion , Pharyngeal Erythema Neck: Positive for: Normal, Painless ROM, Supple. Negative for: Decreased ROM, Limited ROM, Trachea Midline, Pain On Movement Of Neck Cardiovascular/Chest: Positive for: Regular Rate, Rhythm, Chest Non Tender. Negative for: Edema, Gallop, Murmur, Bradycardia, Tachycardia, Ectopy, Friction Rub, Irregularly Irregular Respiratory: Positive for: Normal Breath Sounds. Negative for: Decreased Breath Sounds, Accessory Muscle Use, Crackles, Rales, Rhonchi, Stridor, Wheezing , Respiratory Distress Gastrointestinal/Abdominal: Positive for: Normal Exam, Bowel Sounds, Soft. Negative for: Tenderness Back: Positive for: Normal Inspection. Negative for: L CVA Tenderness, R CVA Tenderness Extremity: Positive for: Normal ROM. Negative for: Tenderness, Pedal Edema, Calf Tenderness, Deformity, Swelling Neurologic/Psych: Positive for: Alert, gem setter II-XII, Oriented, Mood/Affect (calm) , Gait (steady). Negative for: Motor/Sensory Deficits, Facial Droop - Laboratory Results Result Diagrams: 08/15/17 08:30 08/15/17 08:30 - ECG O2 Sat by Pulse Oximetry: 98 Pulse Ox Interpretation: Normal - Progress ED Course And Treament: 830 am pt placed in obs. 1030 am pt resting comfotably sx moderately improved, tongue swelling reduced. pt sx resolved after treatment. no dysphagua at a ful meal here. advise close f /u with pmd, d/c on antihistamines and steroids. Re-evaluation Time: 12:00 Condition: Improved Disposition - Clinical Impression Clinical Impression: Angioedema - Patient ED Disposition Is Patient to be Admitted: No Counseled Patient/Family Regarding: Studies Performed, Diagnosis, Need For Followup, Rx Given - Disposition Disposition: Routine/Home Disposition Time: 12:00 Condition: GOOD
[2017-08-15] MEDS ORDERED: DiphenhydrAMINE 50 mg/ml Inj ONE (08:11)
[2017-08-15 08:40] LABS: BASO # 0.1 K/uL (0.0-0.2); BASO % 0.8 % (0.0-2.0); EOS # 0.2 K/uL (0.0-0.7); EOS % 2.3 % (0.0-4.0); HEMATOCRIT 44.3 % (35.0-51.0); LYMPH # 1.4 K/uL (1.0-4.3); LYMPH % 18.8 % (20.0-40.0); MEAN CELL VOLUME 86.1 fl (80.0-94.0); MEAN CORPUSCULAR HEMOGLOBIN 28.6 pg (27.0-31.0); MEAN CORPUSCULAR HGB CONC 33.2 g/dL (33.0-37.0); MEAN PLATELET VOLUME 8.7 fl (7.2-11.7); MONO # 0.8 K/uL (0.0-0.8); MONO % 10.5 % (0.0-10.0); NEUT # 5.2 K/uL (1.8-7.0); NEUT % 67.6 % (50.0-75.0); NRBC % 0.1 % (0.0-0.0); RED CELL DISTRIBUTION WIDTH 17.1 % (11.5-14.5); WHITE BLOOD COUNT 7.7 K/uL (4.8-10.8)
[2017-08-15 08:43] LABS: BLOOD UREA NITROGEN 10 mg/dl (9-20); CALCIUM 9.7 mg/dL (8.4-10.2); CARBON DIOXIDE 25 mmol/L (22-30); CHLORIDE 105 mmol/L (98-107); GFR AFRICAN-AMERICAN > 60; GLUCOSE,RANDOM 118 mg/dL (75-110); POTASSIUM 4.3 MMOL/L (3.6-5.0); SODIUM 140 mmol/l (132-148)
[2017-08-15 12:27] VITALS: BP 150/83; PULSE 51
[2017-08-15 12:32] VITALS: O2SAT 98
== END 2017-08-15 12:48 | disposition home or self-care (01) ==
LOC: H.ER 07:01 → H.EROBSV 11:24
PROVIDERS: ADMIT Emergency Medicine; ATTEND Emergency Medicine
DX: T78.3XXA Angioneurotic edema, initial encounter (principal); E78.5 Hyperlipidemia, unspecified; I10 Essential (primary) hypertension; R56.9 Unspecified convulsions; Z79.899 Other long term (current) drug therapy
CPT/HCPCS: 80048; 85025; 96361; 96374; 96375; 99283; G0378; J1200; J2930; J7040